=== PATIENT | female | born 1980 | race Two or more races ===

== ENCOUNTER 2017-08-19 14:46 | Emergency (ER) | payer OTHER ==
[~2017-08-19] VITALS: Ht 162.6 cm; Wt 64.0 kg
[2017-08-19 16:13] LABS: DIFF TOTAL CELLS COUNTED 100 CELL DIFF; HEMATOCRIT 29.2 % (34.6-47.8); HEMOGLOBIN 8.9 g/dL (11.7-16.4); WHITE BLOOD COUNT 9.7 x10^3/uL (3.4-10)
[2017-08-19 16:14] LABS: VERIFY COUNTS? YES
[2017-08-19 16:15] LABS: ANISOCYTOSIS 2+; HYPOCHROMIA 1+; MICROCYTOSIS 2+; OVALOCYTES 1+; POIKILOCYTOSIS 1+; POLYCHROMASIA 1+; SPHEROCYTES 1+
[2017-08-19 17:17] VITALS: BP 123/69
== END 2017-08-19 18:20 | disposition home or self-care (01) ==
LOC: ED 18:10
DX: O20.0 Threatened abortion (principal); O23.11 Infections of bladder in pregnancy, first trimester; O99.011 Anemia complicating pregnancy, first trimester; Z3A.01 Less than 8 weeks gestation of pregnancy
CPT/HCPCS: 36415; 36430; 76801; 81001; 84702; 85025; 86901; 87077; 87086; 87186; 99285

== ENCOUNTER 2017-08-21 10:27 | Emergency (ER) | payer MEDICAID, OTHER ==
[~2017-08-21] VITALS: Ht 162.6 cm; Wt 63.0 kg
[2017-08-21 10:35] VITALS: BP 120/78
== END 2017-08-21 13:27 | disposition home or self-care (01) ==
LOC: ED 13:15
DX: O20.0 Threatened abortion (principal)
CPT/HCPCS: 36415; 76801; 84702; 99285

== ENCOUNTER 2018-03-24 10:20 | Outpatient (CLI) | payer MEDICAID ==
[~2018-03-24] VITALS: Ht 162.6 cm; Wt 80.5 kg
[2018-03-24 10:30] VITALS: BP 116/71
[2018-03-24 10:48] LABS: BASOPHILS # (AUTO) 0.09 x10^3/uL (0-0.1); BASOPHILS % (AUTO) 1 % (0-1); EOSINOPHILS # (AUTO) 0.21 x10^3/uL (0-0.4); EOSINOPHILS % (AUTO) 2 % (1-7); LYMPHOCYTES # (AUTO) 1.69 x10^3/uL (1-3.4); LYMPHOCYTES % (AUTO) 16 % (22-44); MD NO; MEAN CORPUSCULAR HEMOGLOBIN 27.7 pg (27.0-34.8); MEAN CORPUSCULAR HGB CONC 33.5 g/dL (32.4-35.8); MEAN CORPUSCULAR VOLUME 82.7 fL (80-100); MEAN PLATELET VOLUME 8.1 fL (7.4-10.4); MONOCYTES # (AUTO) 0.81 x10^3/uL (0.2-0.8); MONOCYTES % (AUTO) 8 % (2-9); NEUTROPHILS % (AUTO) 74 % (42-75); PLATELET COUNT 305 x10^3/uL (130-400); RED BLOOD COUNT 4.56 x10^6/uL (3.82-5.3); RED CELL DISTRIBUTION WIDTH 15.4 % (9.6-15.2)
[2018-03-24 11:01] LABS: ALBUMIN 2.7 g/dL (3.4-5.0); ANION GAP 11 mmol/L (5-15); CALCIUM 8.4 mg/dL (8.5-10.1); CHLORIDE 107 mmol/L (98-107)
[2018-03-24 11:04] LABS: ALANINE AMINOTRANSFERASE 21 U/L (12-78); ALKALINE PHOSPHATASE 140 U/L (45-117); BILIRUBIN,TOTAL 0.3 mg/dL (0.2-1.0); CREATININE 0.45 mg/dL (0.55-1.02)
[2018-03-24 11:14] LABS: MICROSCOPIC NOT IND
[2018-03-24 11:30] LABS: PROTEIN/CREATININE RATIO,URINE < 223 (0-200); TOTAL PROTEIN,URINE RANDOM < 5 mg/dL (0-12)
[2018-03-24 12:32] LABS: AMPHETAMINE SCREEN, URINE Negative (Negative); BARBITURATE SCREEN, URINE Negative (Negative); BENZODIAZEPINE SCREEN, URINE Negative (Negative); CANNABINOID SCREEN, URINE Negative (Negative); COCAINE SCREEN, URINE Negative (Negative); METHADONE SCREEN, URINE Negative (Negative); OPIATE SCREEN, URINE Negative (Negative)
== END 2018-03-24 12:22 | disposition home or self-care (01) ==
LOC: LDOP 10:20
PROVIDERS: ATTEND Obstetrics & Gynecology
DX: O16.3 Unspecified maternal hypertension, third trimester (principal); O29.43 Spinal and epidural anesthesia induced headache during pregnancy, third trimester; Z3A.35 35 weeks gestation of pregnancy
CPT/HCPCS: 36415; 59025; 80053; 80307; 81003; 81050; 82570; 84156; 84550; 85025; 99211; G0463

== ENCOUNTER 2018-03-25 12:08 | Outpatient (CLI) | payer MEDICAID | END 2018-03-25 12:35 | disposition home or self-care (01) | LOC: LDOP 12:08 | PROVIDERS: ATTEND Obstetrics & Gynecology | DX: O36.8130 Decreased fetal movements, third trimester, not applicable or unspecified (principal); O09.523 Supervision of elderly multigravida, third trimester; Z3A.36 36 weeks gestation of pregnancy | CPT/HCPCS: 59025; 99211; G0463 ==

== ENCOUNTER 2018-04-06 12:53 | Inpatient (IN) | payer MEDICAID ==
[~2018-04-06] VITALS: Ht 162.6 cm; Wt 81.9 kg
[~2018-04-06 12:53] MED LIST: PREN1TAB60 PO
[2018-04-06 12:57] VITALS: BP 144/87
[2018-04-06] MEDS ORDERED: D5%-LACTATED RINGERS 1,000 ML IV SCH (13:23)
[2018-04-06] MEDS ORDERED: OXYTOCIN 30U/ 0.9% NaCL 500ML 500 ML IV ONE (13:23)
[2018-04-06] MEDS ORDERED: FENTANYL PF 100 MCG/2ML IV PRN (13:30)
[2018-04-06] MEDS ORDERED: MISOPROSTOL 25 MCG TABLET VG PRN (13:30)
[2018-04-06] MEDS ORDERED: ONDANSETRON 2MG/ML, 2ML IVPush PRN (13:30)
[2018-04-06] MEDS ORDERED: FENTANYL PF 100 MCG/2ML IVPush PRN (13:30)
[2018-04-06] MEDS ORDERED: LACTATED RINGERS 1,000 ML IVBOLUS ONE (13:30)
[2018-04-06] MEDS ORDERED: NEWBORN KIT ONE (13:55)
[2018-04-06] MEDS ORDERED: OXYTOCIN 30U/ 0.9% NaCL 500ML 500 ML ONE (13:55)
[2018-04-06 14:05] LABS: BASOPHILS # (AUTO) 0.01 x10^3/uL (0-0.1); BASOPHILS % (AUTO) 0 % (0-1); EOSINOPHILS # (AUTO) 0.07 x10^3/uL (0-0.4); EOSINOPHILS % (AUTO) 1 % (1-7); LYMPHOCYTES # (AUTO) 1.08 x10^3/uL (1-3.4); LYMPHOCYTES % (AUTO) 12 % (22-44); MD NO; MEAN CORPUSCULAR HEMOGLOBIN 26.7 pg (27.0-34.8); MEAN CORPUSCULAR VOLUME 81.1 fL (80-100); MEAN PLATELET VOLUME 8.2 fL (7.4-10.4); MONOCYTES # (AUTO) 0.58 x10^3/uL (0.2-0.8); MONOCYTES % (AUTO) 7 % (2-9); NEUTROPHILS # (AUTO) 6.97 x10^3/uL (1.8-6.8); NEUTROPHILS % (AUTO) 80 % (42-75); PLATELET COUNT 302 x10^3/uL (130-400); RED BLOOD COUNT 4.48 x10^6/uL (3.82-5.3); RED CELL DISTRIBUTION WIDTH 15.3 % (9.6-15.2)
[2018-04-06] MEDS: LACTATED RINGERS 1,000 ML IV SCH (14:28)
[2018-04-06] MEDS ORDERED: MISOPROSTOL 25 MCG TABLET ONE ×2 (15:17→19:42)
[2018-04-07] MEDS ORDERED: OXYTOCIN 30U/ 0.9% NaCL 500ML 500 ML IV PRN (00:53)
[2018-04-07] MEDS ORDERED: FENTANYL/BUPIV./NS/PF 250 ML EPIDCONT SCH ×2 (00:56→08:16)
[2018-04-07] MEDS: LACTATED RINGERS 1,000 ML IV SCH ×2 (02:07→07:29)
[2018-04-07] MEDS ORDERED: FENTANYL PF 100 MCG/2ML ONE (02:11)
[2018-04-07] MEDS ORDERED: ONDANSETRON 2MG/ML, 2ML ONE (07:17)
[2018-04-07] MEDS ORDERED: ACETAMINOPHEN 325 MG TABLET ONE ×2 (07:18→10:36)
[2018-04-07] MEDS ORDERED: FENTANYL/BUPIV./NS/PF 250 ML EPIDCONT ONE (07:35)
[2018-04-07] MEDS ORDERED: LACTATED RINGERS 1,000 ML IV SCH (08:16)
[2018-04-07] MEDS ORDERED: NALOXONE 0.4 MG/ML, 1ML IVPush PRN (08:30)
[2018-04-07] MEDS ORDERED: LACTATED RINGERS 1,000 ML IVBOLUS PRN (08:30)
[2018-04-07] MEDS ORDERED: EPHEDRINE 50 MG/ML, 1ML IVPush PRN (08:30)
[2018-04-07] MEDS ORDERED: ACETAMINOPHEN 325 MG TABLET PO PRN (11:00)
[2018-04-07] MEDS ORDERED: OXYTOCIN 30U/ 0.9% NaCL 500ML 500 ML ONE (12:09)
[2018-04-07] MEDS ORDERED: ONDANSETRON 2MG/ML, 2ML IV PRN (13:00)
[2018-04-07] MEDS ORDERED: OXYcodone/APAP 5/325MG TABLET PO PRN ×2 (13:00)
[2018-04-07] MEDS ORDERED: CALCIUM CARBONATE 500 MG TAB.CHEW PO PRN (13:00)
[2018-04-07] MEDS ORDERED: MISOPROSTOL 200 MCG TABLET PR PRN (13:00)
[2018-04-07] MEDS: OXYTOCIN 30U/ 0.9% NaCL 500ML 500 ML IV SCH ×2 (13:21→18:57)
[2018-04-07 14:48] VITALS: BP_SYST 125; BP_DIAS 120; BP_DIAS 78
[2018-04-07 19:10] VITALS: BP 117/75
[2018-04-07 19:58] LABS: BASOPHILS # (AUTO) 0.01 x10^3/uL (0-0.1); BASOPHILS % (AUTO) 0 % (0-1); EOSINOPHILS # (AUTO) 0.08 x10^3/uL (0-0.4); EOSINOPHILS % (AUTO) 1 % (1-7); LYMPHOCYTES # (AUTO) 1.05 x10^3/uL (1-3.4); LYMPHOCYTES % (AUTO) 8 % (22-44); MD NO; MEAN CORPUSCULAR HEMOGLOBIN 27.3 pg (27.0-34.8); MEAN CORPUSCULAR HGB CONC 33.1 g/dL (32.4-35.8); MEAN CORPUSCULAR VOLUME 82.5 fL (80-100); MONOCYTES # (AUTO) 0.73 x10^3/uL (0.2-0.8); MONOCYTES % (AUTO) 6 % (2-9); NEUTROPHILS # (AUTO) 11.01 x10^3/uL (1.8-6.8); NEUTROPHILS % (AUTO) 86 % (42-75); PLATELET COUNT 263 x10^3/uL (130-400); RED BLOOD COUNT 4.13 x10^6/uL (3.82-5.3); RED CELL DISTRIBUTION WIDTH 15.7 % (9.6-15.2)
[2018-04-07] MEDS ORDERED: DIPH,PERTUSS(ACELL),TET VAC/PF NC IM-VACC ONE (20:30)
[2018-04-07] MEDS: DOCUSATE 100 MG CAPSULE PO PRN (22:33)
[2018-04-07] MEDS: IBUPROFEN 600 MG TABLET PO PRN (22:33)
[2018-04-08 00:20] VITALS: BP 94/55
[2018-04-08 03:40] VITALS: BP 96/61
[2018-04-08 07:20] VITALS: BP 98/61
[2018-04-08] MEDS: OXYTOCIN 30U/ 0.9% NaCL 500ML 500 ML IV SCH (07:22)
[2018-04-08] MEDS: IBUPROFEN 600 MG TABLET PO PRN (07:24)
[2018-04-08] MEDS: DOCUSATE 100 MG CAPSULE PO PRN (07:24)
[2018-04-08] MEDS ORDERED: PRENATAL VIT/IRON/FA 1 EACH TABLET PO SCH (09:00)
== END 2018-04-08 13:15 | disposition home or self-care (01) | DRG 775 ==
LOC: LDIP 12:53 → 2NW 04-07 14:36
PROVIDERS: ADMIT Obstetrics & Gynecology; ATTEND Obstetrics & Gynecology
PROC: 10E0XZZ Delivery of Products of Conception, External Approach (ICD-10-PCS; principal; 2018-04-07)
PROC: 3E0P7VZ Introduction of Hormone into Female Reproductive, Via Natural or Artificial Opening (ICD-10-PCS; 2018-04-07)
PROC: 0HQ9XZZ Repair Perineum Skin, External Approach (ICD-10-PCS; 2018-04-07)
PROC: 3E0R3BZ Introduction of Anesthetic Agent into Spinal Canal, Percutaneous Approach (ICD-10-PCS; 2018-04-07)
PROC: 00HU33Z Insertion of Infusion Device into Spinal Canal, Percutaneous Approach (ICD-10-PCS; 2018-04-07)
PROC: 0UQMXZZ Repair Vulva, External Approach (ICD-10-PCS; 2018-04-07)
PROC: 3E033VJ Introduction of Other Hormone into Peripheral Vein, Percutaneous Approach (ICD-10-PCS; 2018-04-07)
DX: O13.4 Gestational [pregnancy-induced] hypertension without significant proteinuria, complicating childbirth (principal); O41.03X0 Oligohydramnios, third trimester, not applicable or unspecified; O14.94 Unspecified pre-eclampsia, complicating childbirth; Z37.0 Single live birth; Z3A.37 37 weeks gestation of pregnancy; O70.0 First degree perineal laceration during delivery; O71.82 Other specified trauma to perineum and vulva; Z23 Encounter for immunization
CPT/HCPCS: 36415; J7121; 85025; 86850; 86900; 90715; J2405; J2590; J3010; J7120

== ENCOUNTER 2018-08-08 20:26 | Emergency (ER) | payer MEDICAID ==
[~2018-08-08] VITALS: Ht 163.8 cm; Wt 74.4 kg
[2018-08-08 20:29] VITALS: BP 153/65
== END 2018-08-08 21:51 | disposition home or self-care (01) ==
LOC: ED 21:23
DX: B34.9 Viral infection, unspecified (principal); Z90.89 Acquired absence of other organs
CPT/HCPCS: 71045; 99283

== ENCOUNTER 2019-07-07 10:08 | Inpatient (IN) | payer MEDICAID ==
[~2019-07-07] VITALS: Ht 162.6 cm; Wt 73.4 kg
[2019-07-07] VITALS (11 sets, daily range): BP systolic 119–142; BP diastolic 67–90
--- NOTE | 2019-07-07 11:14 | NUR ---
MD Davila has been at bedside to assess pt
[2019-07-07 11:32] LABS: MEAN CORPUSCULAR HEMOGLOBIN 14.7 pg (27.0-34.8); MEAN CORPUSCULAR VOLUME 52.7 fL (80-100); MEAN PLATELET VOLUME 7.1 fL (7.4-10.4); PLATELET COUNT 602 x10^3/uL (130-400); RED BLOOD COUNT 4.71 x10^6/uL (3.82-5.3)
[2019-07-07 11:35] LABS: ALANINE AMINOTRANSFERASE 13 U/L (12-78); ANION GAP 4 mmol/L (5-15); CALCIUM 8.3 mg/dL (8.5-10.1); CHLORIDE 111 mmol/L (98-107); CREATININE 0.57 mg/dL (0.55-1.02)
[2019-07-07 11:38] LABS: MICROSCOPIC INDICATED
[2019-07-07 11:40] LABS: ALKALINE PHOSPHATASE 71 U/L (45-117); BILIRUBIN,TOTAL 0.3 mg/dL (0.2-1.0); TOTAL PROTEIN 7.8 g/dL (6.4-8.2); TROPONIN I < 0.015 ng/mL (0.000-0.045)
[2019-07-07 11:42] LABS: CULTURE INDICATED? NO
[2019-07-07 12:07] LABS: MD YES
[2019-07-07 12:10] LABS: BASOS#(MANUAL) 0.07 x10^3/uL (0-0.1); BASOS% (MANUAL) 1 % (0-1); EOS% (MANUAL) 3 % (1-7); LYMPH#(MANUAL) 1.88 x10^3/uL (1-3.4); LYMPHS% (MANUAL) 28 % (22-44); MONOS#(MANUAL) 0.07 x10^3/uL (0.3-2.7); MONOS% (MANUAL) 1 % (2-9); SEG#(MANUAL) 4.49 x10^3/uL (1.8-6.8); SEGS% (MANUAL) 67 % (42-75)
[2019-07-07 12:13] LABS: ANISOCYTOSIS 2+; HYPOCHROMIA 2+; MICROCYTOSIS 3+; OVALOCYTES 1+
[2019-07-07 12:14] LABS: <PLATELET ESTIMATE> INCREASED; <PLT MORPHOLOGY> NORMAL PLT MORPH; TEAR DROPS 1+
[2019-07-07 13:07] LABS: RED BLOOD COUNT 4.71 x10^6/uL (3.82-5.3)
[2019-07-07 13:11] LABS: ABSOLUTE RETICS # 0.053 x10^6/uL (0.5-2.5); RETICULOCYTE COUNT % 1.16 % (0.5-1.5)
[2019-07-07] MEDS ORDERED: ONDANSETRON ODT 4 MG PO PRN (14:00)
[2019-07-07] MEDS ORDERED: DOCUSATE 100 MG CAPSULE PO PRN (14:00)
[2019-07-08] VITALS: BP 119/68
[2019-07-08 05:58] LABS: ANION GAP 5 mmol/L (5-15); CALCIUM 8.3 mg/dL (8.5-10.1); CHLORIDE 108 mmol/L (98-107); CREATININE 0.57 mg/dL (0.55-1.02)
[2019-07-08 06:31] LABS: MEAN CORPUSCULAR HEMOGLOBIN 18.5 pg (27.0-34.8); MEAN CORPUSCULAR VOLUME 61.5 fL (80-100); MEAN PLATELET VOLUME 7.5 fL (7.4-10.4); PLATELET COUNT 541 x10^3/uL (130-400); RED BLOOD COUNT 5.37 x10^6/uL (3.82-5.3); RED CELL DISTRIBUTION WIDTH 40.8 % (9.6-15.2)
[2019-07-08 06:45] VITALS: BP 123/74
[2019-07-08 06:48] LABS: MD YES
[2019-07-08 06:49] LABS: ANISOCYTOSIS 2+; EOS#(MANUAL) 0.32 x10^3/uL (0.0-0.4); EOS% (MANUAL) 4 % (1-7); LYMPH#(MANUAL) 1.62 x10^3/uL (1-3.4); LYMPHS% (MANUAL) 20 % (22-44); MONOS#(MANUAL) 0.32 x10^3/uL (0.3-2.7); MONOS% (MANUAL) 4 % (2-9); SEG#(MANUAL) 5.83 x10^3/uL (1.8-6.8); SEGS% (MANUAL) 72 % (42-75)
[2019-07-08 06:50] LABS: <PLATELET ESTIMATE> INCREASED; <PLT MORPHOLOGY> NORMAL PLT MORPH; HYPOCHROMIA 2+; MICROCYTOSIS 3+; OVALOCYTES 1+; TEAR DROPS 1+
[2019-07-08] MEDS ORDERED: MULTIVITAMINS WITH IRON TABLET PO SCH (09:00)
[2019-07-08] MEDS ORDERED: ACETAMINOPHEN 325 MG TABLET ONE (10:06)
[2019-07-08] MEDS ORDERED: ACETAMINOPHEN 325 MG TABLET PO PRN (10:30)
[2019-07-08] MEDS ORDERED: FLU VAC QS 19-20(4YR UP)CEL/PF 0.5 ML IM-VACC ONE (12:30)
[2019-07-08 13:30] VITALS: BP 123/77
[2019-07-08] MEDS ORDERED: DOCU100C33 PO (13:53)
[2019-07-08] MEDS ORDERED: FERR325T18 PO (13:53)
[2019-07-08] MEDS ORDERED: FLU VACC QS2019-20 36MOS UP/PF 0.5 ML IM-VACC ONE (15:30)
== END 2019-07-08 15:54 | disposition home or self-care (01) | DRG 812 ==
LOC: ED 13:58 → 3N 14:00 → DCLOUNGE 07-08 15:44
PROVIDERS: ADMIT Family Medicine; ATTEND Internal Medicine
PROC: 30233N1 Transfusion of Nonautologous Red Blood Cells into Peripheral Vein, Percutaneous Approach (ICD-10-PCS; principal; 2019-07-07)
DX: D50.0 Iron deficiency anemia secondary to blood loss (chronic) (principal); F12.90 Cannabis use, unspecified, uncomplicated; N92.0 Excessive and frequent menstruation with regular cycle; Z86.61 Personal history of infections of the central nervous system; Z98.82 Breast implant status; Z23 Encounter for immunization; Z90.49 Acquired absence of other specified parts of digestive tract
CPT/HCPCS: 36415; 36430; 80048; 80053; 81001; 82728; 83540; 83550; 84484; 85014; 85018; 85025; 85045; 86850; 86900; 86923; 90686; 93005; G0378; P9016

== ENCOUNTER 2019-08-10 14:23 | Emergency (ER) | payer MEDICAID ==
[~2019-08-10] VITALS: Ht 162.6 cm; Wt 73.1 kg
[~2019-08-10 14:23] MED LIST changes: +DOCU100C33 PO; +FERR325T18 PO
[2019-08-10 14:27] VITALS: BP 157/96
[2019-08-10 15:14] LABS: MEAN CORPUSCULAR HEMOGLOBIN 20.3 pg (27.0-34.8); MEAN CORPUSCULAR HGB CONC 30.6 g/dL (32.4-35.8); MEAN CORPUSCULAR VOLUME 66.4 fL (80-100); MEAN PLATELET VOLUME 7.7 fL (7.4-10.4); PLATELET COUNT 402 x10^3/uL (130-400); RED BLOOD COUNT 5.05 x10^6/uL (3.82-5.3); RED CELL DISTRIBUTION WIDTH 36.6 % (9.6-15.2)
[2019-08-10 15:22] LABS: ALBUMIN 3.5 g/dL (3.4-5.0); ANION GAP 6 mmol/L (5-15); CALCIUM 8.1 mg/dL (8.5-10.1); CHLORIDE 108 mmol/L (98-107)
[2019-08-10 15:25] LABS: ALANINE AMINOTRANSFERASE 15 U/L (12-78); ALKALINE PHOSPHATASE 77 U/L (45-117); BILIRUBIN,TOTAL 0.3 mg/dL (0.2-1.0); CREATININE 0.67 mg/dL (0.55-1.02)
--- NOTE | 2019-08-10 15:37 | NUR ---
AWAITING DIFFERENTIAL RESULTS FOR CBC. CALL LIGHT WITHIN REACH.
[2019-08-10 15:54] LABS: MD MORPH REVIEW ONLY
[2019-08-10 15:55] LABS: BASOPHILS % (AUTO) 0 % (0-1); EOSINOPHILS # (AUTO) 0.19 x10^3/uL (0-0.4); EOSINOPHILS % (AUTO) 3 % (1-7); LYMPHOCYTES # (AUTO) 1.03 x10^3/uL (1-3.4); LYMPHOCYTES % (AUTO) 15 % (22-44); MONOCYTES # (AUTO) 0.35 x10^3/uL (0.2-0.8); MONOCYTES % (AUTO) 5 % (2-9); NEUTROPHILS % (AUTO) 77 % (42-75)
[2019-08-10 15:56] LABS: HYPOCHROMIA 2+; OVALOCYTES 1+
[2019-08-10 15:57] LABS: ANISOCYTOSIS 2+
[2019-08-10 15:58] LABS: TEAR DROPS 1+
[2019-08-10 15:59] LABS: <PLATELET ESTIMATE> ADEQUATE; <PLT MORPHOLOGY> NORMAL PLT MORPH; MICROCYTOSIS 3+
--- NOTE | 2019-08-10 16:03 | NUR ---
RESULTS BACK, PT FOR RECHECK
== END 2019-08-10 16:32 | disposition home or self-care (01) ==
LOC: ED 16:20
DX: D50.0 Iron deficiency anemia secondary to blood loss (chronic) (principal); N93.8 Other specified abnormal uterine and vaginal bleeding; Z90.49 Acquired absence of other specified parts of digestive tract
CPT/HCPCS: 36415; 80053; 85025; 86850; 86900; 93005; 99284

== ENCOUNTER 2020-02-25 21:22 | Emergency (ER) | payer BC, MEDICAID ==
[~2020-02-25] VITALS: Ht 162.6 cm; Wt 73.3 kg
[2020-02-25] MEDS ORDERED: SODIUM CHLORIDE FLUSH 10ML SYR IVF ONE (22:00)
[2020-02-25] MEDS ORDERED: SODIUM CHLORIDE 0.9% 1,000ML IVBOLUS ONE (22:00)
[2020-02-25 22:14] LABS: BASOPHILS # (AUTO) 0.04 x10^3/uL (0-0.1); BASOPHILS % (AUTO) 1 % (0-1); EOSINOPHILS # (AUTO) 0.18 x10^3/uL (0-0.4); EOSINOPHILS % (AUTO) 3 % (1-7); LYMPHOCYTES # (AUTO) 1.81 x10^3/uL (1-3.4); LYMPHOCYTES % (AUTO) 27 % (22-44); MD NO; MEAN CORPUSCULAR HEMOGLOBIN 28.5 pg (27.0-34.8); MEAN CORPUSCULAR HGB CONC 33.5 g/dL (32.4-35.8); MEAN PLATELET VOLUME 7.1 fL (7.4-10.4); MONOCYTES # (AUTO) 0.49 x10^3/uL (0.2-0.8); MONOCYTES % (AUTO) 7 % (2-9); NEUTROPHILS # (AUTO) 4.22 x10^3/uL (1.8-6.8); NEUTROPHILS % (AUTO) 63 % (42-75); PLATELET COUNT 497 x10^3/uL (130-400); RED BLOOD COUNT 4.11 x10^6/uL (3.82-5.3); RED CELL DISTRIBUTION WIDTH 14.4 % (9.6-15.2)
[2020-02-25 22:20] LABS: ALANINE AMINOTRANSFERASE 19 U/L (12-78); ALBUMIN 3.7 g/dL (3.4-5.0); ANION GAP 6 mmol/L (5-15); CALCIUM 8.4 mg/dL (8.5-10.1); CHLORIDE 110 mmol/L (98-107); CREATININE 0.76 mg/dL (0.55-1.02)
[2020-02-25 22:24] LABS: ALKALINE PHOSPHATASE 74 U/L (45-117); BILIRUBIN,TOTAL 0.2 mg/dL (0.2-1.0); TOTAL PROTEIN 7.7 g/dL (6.4-8.2)
[2020-02-25 22:44] LABS: INTERNATIONAL NORMALIZED RATIO 0.94 (0.93-1.1)
[2020-02-26 00:17] VITALS: BP 115/72
== END 2020-02-26 00:19 | disposition home or self-care (01) ==
LOC: ED 02-26 00:10
DX: N93.8 Other specified abnormal uterine and vaginal bleeding (principal); R51 Headache
CPT/HCPCS: 36415; 80053; 84703; 85025; 85610; 85730; 86850; 86900; 93005; 99284; J7030